=== PATIENT | male | born 2000 | race Caucasian/White ===

== ENCOUNTER 2022-08-27 12:43 | Emergency (ER) | payer BC, SELFPAY ==
[2022-08-27 13:06] VITALS: BP 120/62; PULSE 73; RESP 16; TEMP 37.2; O2SAT 99
--- NOTE | 2022-08-27 13:42 | ED.MALEGU ---
HPI - Male Genitourinary General Chief complaint: Urogenital-Male Stated complaint: STD Testing Time Seen by Provider: 08/27/22 13:42 Source: patient and RN notes reviewed Mode of arrival: ambulatory Limitations: no limitations History of Present Illness HPI Narrative: 22 y/o male presented for concern for possible std. Denies any symptoms. Endorses possible exposure a few days ago, but unsure of the disease. Related Data Home Medications Medication Instructions Recorded Confirmed lurasidone 40 mg tablet (Latuda) 40 mg PO DAILY 08/27/22 08/27/22 Allergies Allergy/AdvReac Type Severity Reaction Status Date / Time No Known Allergies Allergy Verified 08/27/22 13:12 Review of Systems Review of Systems: CONSTITUTIONAL: Denies body aches, fever, chills, or sweats. CARDIOVASCULAR: Denies chest pain, palpitations, or edema. RESPIRATORY: Denies cough or dyspnea. GASTROINTESTINAL: Denies abdominal pain, nausea, vomiting, or diarrhea. GENITOURINARY: Denies dysuria, frequency, urgency, hematuria, flank pain SKIN: Denies rash, itching, or wounds. MUSCULOSKELETAL: Denies back pain or myalgia. PMFSH Comments At time of signature, I have reviewed and agree with nursing past medical, surgical, social and family history unless otherwise noted. Please see nursing chart for further information. There is no relevant family history pertinent to the presenting complaint Exam Narrative: GENERAL: Well-appearing ENT: Mucous membranes pink and moist. NECK: Normal AROM. Supple. CHEST: Clear to auscultation. HEART: Regular rate and rhythm. ABDOMEN: Soft, nontender, nondistended, normal active bowel sounds. No CVA tenderness SKIN: Warm, dry, no rash. Course Course Emergency Course: Patient is aware of diagnosis, understands and agrees to treatment plan. Anticipatory guidance given. Patient agrees to follow-up as directed and is aware of reasons to seek care at the emergency department. Portions of this record may have been created with voice recognition software Level of Care: Express Care Visit Vital Signs Vital signs: Vital Signs Temperature 98.9 F 08/27/22 13:06 Pulse Rate 73 08/27/22 13:06 Respiratory Rate 16 08/27/22 13:06 Blood Pressure 120/62 08/27/22 13:06 Pulse Oximetry 99 08/27/22 13:06 Oxygen Delivery Room Air 08/27/22 13:06 Temperature 98.9 F 08/27/22 13:06 Pulse Rate 73 08/27/22 13:06 Respiratory Rate 16 08/27/22 13:06 Blood Pressure 120/62 08/27/22 13:06 Pulse Oximetry 99 08/27/22 13:06 Oxygen Delivery Room Air 08/27/22 13:06 Reviewed MDM - Male Genitourinary MDM Narrative Medical decision making narrative: Patient presenting with concern for STD. Urine specimen collected for GC, chlamydia, trich. Informed Pt will be contacted w/ results when they become available if they are positive. Discussed with patient that it takes up to 7 days for results of cultures to be released and explained that we may treat empirically at this time. Declines treatment at this time and will return should tests be positive. I have instructed the patient to return to the ER at any time if there are any new or worsening symptoms. The patient expressed understanding of and agreement with this plan. Differential Diagnosis Differential diagnosis: Likely urinary tract infection, urethritis and other (std) Discharge Plan Discharge Clinical Impression: Concern about STD in male without diagnosis Patient Disposition: Home, Self-Care Condition: Stable Instructions: Sexually Transmitted Diseases (ED) Additional Instructions: Your urine has been sent off to test for gonorrhea, chlamydia, and trichomonas infections. You will be called if any of your tests come back positive. These tests can take up to 5-7 days to come back. If your tests come back positive you need further treatment, but you will need to notify any partners that you have so they can be tested and t
== END 2022-08-27 13:53 | disposition home or self-care (01) ==
PROVIDERS: Emergency Provider Nurse Practitioner Family; PCP Emergency Medicine
DX: Z11.3 Encounter for screening for infections with a predominantly sexual mode of transmission (principal); F39 Unspecified mood [affective] disorder
CPT/HCPCS: 87491; 87591; 87661; 99213; G0463